=== PATIENT | female | born 1995 | race Two or more races ===

== ENCOUNTER 2016-08-13 16:53 | Emergency (ER) | payer MEDICAID, OTHER ==
[~2016-08-13] VITALS: Ht 157.5 cm; Wt 65.8 kg
[~2016-08-13 16:53] MED LIST: PROZAC20 MG ORAL
[2016-08-13 17:05] VITALS: BP 129/84
[2016-08-13] MEDS ORDERED: NKM (17:06)
[2016-08-13] MEDS ORDERED: Mylanta II UD 30ml ORAL ONE (17:15)
[2016-08-13] MEDS ORDERED: Dicyclomine HCl 10mg/5ml oral soln ORAL ONE (17:15)
[2016-08-13] MEDS ORDERED: Lidocaine 2% Visc 15ml soln ORAL ONE (17:15)
--- NOTE | 2016-08-13 17:24 | Emergency Room Report ---
History of Present Illness General Chief Complaint: General Complaint Source: Patient Present Illness [facility] The patient is a 21-year-old female presenting for upper abdominal pain which began yesterday. The patient states that she's been excessively drinking over the past few days and has also vomited several times. The patient now describes pain as an 8/10 burning sensation to the mid upper abdomen and radiates to the mid chest. The patient states that she has never been diagnosed with GERD. She has not tried any medications for this. The patient denies any other symptoms including cough, shortness of breath, headache, dizziness, blurred vision, diaphoresis, numbness or tingling of extremities, palpitations Allergies: Coded Allergies: No Known Allergies (Unverified , 05/15/13) Patient History Past Medical History: see triage record Pertinent Family History: none Last Menstrual Period: 07/29/2016 Now: No : 0 Para: 0 Reviewed Nursing Documentation: PMH: Agreed, PSxH: Agreed Nursing Documentation-PMH Hx Asthma: Yes Review of Systems All Other Systems: negative except mentioned in HPI Physical Exam Vital Signs Date Time Temp Pulse Resp B/P Pulse Ox O2 Delivery O2 Flow Rate FiO2 08/13/16 16:59 99.1 88 16 129/84 97 Room Air Sp02 EP Interpretation: reviewed, normal General Appearance: no apparent distress, alert, GCS 15, non-toxic Head: normocephalic, atraumatic Eyes: bilateral eye PERRL, bilateral eye normal inspection ENT: hearing grossly normal, normal pharynx, no angioedema, normal voice Neck: full range of motion, supple/symm/no masses Respiratory: lungs clear, normal breath sounds, speaking full sentences Cardiovascular #1: regular rate, rhythm, no edema Gastrointestinal: normal bowel sounds, soft, non-distended, no guarding, no rebound, tenderness - TTP over epigastric region Genitourinary: normal inspection, no CVA tenderness Musculoskeletal: back normal, gait/station normal, normal range of motion, non- tender Neurologic: alert, oriented x3, responsive, motor strength/tone normal, sensory intact, speech normal Psychiatric: judgement/insight normal, memory normal, mood/affect normal, no suicidal/homicidal ideation Skin: normal color, no rash, warm/dry, well hydrated Lymphatic: no adenopathy Medical Decision Making PA Attestation Dr. Joe is my supervising physician. Patient management was discussed with my supervising physician Diagnostic Impression: Primary Impression: GERD (gastroesophageal reflux disease) ER Course The patient is a 21-year-old female presenting for upper abdominal pain which began yesterday. Differential diagnosis considered: Esophagitis, GERD, gastroenteritis, pancreatitis, cholecystitis Physical exam: Vitals within normal limits. No apparent distress. Afebrile HEENT exam is unremarkable Lungs clear to auscultation bilaterally Abdomen is soft. There is tenderness to palpation over the epigastric region only. No CVA tenderness The patient is given GI cocktail and Zofran and is feeling much better. The patient will be discharged home with prescription for Pepcid. The patient is advised not to drink alcohol. ER precautions are given Last Vital Signs Date Time Temp Pulse Resp B/P Pulse Ox O2 Delivery O2 Flow Rate FiO2 08/13/16 17:05 99.1 88 16 129/84 97 Room Air Status: improved Disposition: HOME, SELF-CARE Condition: Improved Scripts Acetaminophen* (TYLENOL EXTRA STRENGTH*) 500 Mg Tablet 500 MG ORAL Q8H Y for Prn Headache/Temp > 101, #30 TAB 0 Refills Prov: MYRON RAMIREZ P.A. 08/13/16 Famotidine (PEPCID) 40 Mg Tablet 40 MG PO DAILY, #7 TAB 0 Refills Prov: MYRON RAMIREZ P.A. 08/13/16 MYRON RAMIREZ P.ANeftali Aug 13, 2016 17:24
[2016-08-13] MEDS ORDERED: PEPCID40 MG PO (18:22)
[2016-08-13] MEDS ORDERED: TYLENOL EXTRA500 MG ORAL (18:22)
[2016-08-13 18:29] VITALS: BP 112/69
[2016-08-14] MEDS ORDERED: ZOFRAN ODT4 MG ORAL (14:28)
[2016-08-14] MEDS ORDERED: NITROFURANTOIN100 M2 ORAL (14:28)
== END 2016-08-13 18:30 | disposition home or self-care (01) ==
LOC: EMR 17:33
DX: K21.9 Gastro-esophageal reflux disease without esophagitis (principal)
CPT/HCPCS: 99284

== ENCOUNTER 2016-08-14 11:54 | Emergency (ER) | payer MEDICAID, OTHER ==
[~2016-08-14] VITALS: Ht 154.9 cm; Wt 65.8 kg
[~2016-08-14 11:54] MED LIST changes: +NKM; +PEPCID40 MG PO; +TYLENOL EXTRA500 MG ORAL
[2016-08-14 12:08] VITALS: BP 154/92
[2016-08-14] MEDS ORDERED: Pantoprazole Inj IV ONE (13:15)
[2016-08-14 13:53] LABS: APPEARANCE,URINE SLIGHTLY CLOUDY; KETONES,URINE 3+ (NEGATIVE); LEUKOCYTE ESTERASE ,URINE 1+ (NEGATIVE); NITRITE,URINE POSITIVE (NEGATIVE); PH,URINE 8 (4.5-8.0); PROTEIN,URINE NEGATIVE (NEGATIVE); UROBILINOGEN,URINE NORMAL MG/DL (0.0-1.0)
--- NOTE | 2016-08-14 13:58 | Emergency Room Report ---
History of Present Illness General Chief Complaint: Chest Pain Source: Patient, Medical Record Present Illness HPI 21 YOF here for 2nd visit in 2 days for epigastric pain, now radiating to back s /p heavy drinking recently. Patient endorses almost daily drinking ETOH. Was treated for GERD and discharged after pain resolved with GI cocktail and normal serial exam yesterday. Patient states she vomited the meds Rx she was given yesterday. Cant keep anything down, liquid or food. Denies other med problems , previous Abd/pelvic surgery. Allergies: Coded Allergies: No Known Allergies (Unverified , 05/15/13) Patient History Past Medical History: none Past Surgical History: none Pertinent Family History: none Social History: Reports: alcohol use Last Menstrual Period: 07/27/2015 Now: No : 0 Para: 0 Immunizations: UTD Reviewed Nursing Documentation: PMH: Agreed, PSxH: Agreed Nursing Documentation-PMH Hx Asthma: Yes Review of Systems All Other Systems: negative except mentioned in HPI Physical Exam Vital Signs Date Time Temp Pulse Resp B/P Pulse Ox O2 Delivery O2 Flow Rate FiO2 08/14/16 12:00 98.8 120 24 154/92 95 Room Air Sp02 EP Interpretation: reviewed, normal General Appearance: normal inspection, well appearing, no apparent distress, alert, GCS 15, non-toxic Head: atraumatic Eyes: bilateral eye EOMI, bilateral eye PERRL ENT: normal ENT inspection, hearing grossly normal, normal voice Neck: normal inspection, full range of motion, supple, no bony tend Respiratory: normal inspection, lungs clear, normal breath sounds, no respiratory distress, no retraction, no wheezing Cardiovascular #1: regular rate, rhythm, no edema Gastrointestinal: normal inspection, normal bowel sounds, soft, no guarding, no hernia, spleenomegaly, other - Mild ttp epigastriunm Genitourinary: no CVA tenderness Musculoskeletal: normal inspection, back normal, normal range of motion, Eleni' s Sign negative Neurologic: normal inspection, alert, oriented x3, responsive, scale manager III-XII nml as tested, motor strength/tone normal, speech normal Psychiatric: normal inspection Skin: normal inspection Medical Decision Making Diagnostic Impression: Primary Impression: Epigastric abdominal pain Additional Impression: UTI (urinary tract infection) Qualified Codes: N30.01 - Acute cystitis with hematuria ER Course Epigastric pain for 3 days in setting of ETOH binge. VSS. Afebrile. Tx and released yesterday for GERD Labs: No leuks. H&H stable. Lipase normal Unlikely pancreatitis UA UTI Initial dose rocephin given in ED. Low suspicion for pyelo given no CVAT, no fever/chills or systemic involvement Rx macrobid, zofran DC home EKG Diagnostic Results Rate: normal Rhythm: NSR ST Segments: no acute changes ASA given to the pt in ED: No Last Vital Signs Date Time Temp Pulse Resp B/P Pulse Ox O2 Delivery O2 Flow Rate FiO2 08/14/16 12:08 98.8 120 24 154/92 95 Room Air Status: improved Disposition: HOME, SELF-CARE Scripts Ondansetron Odt* (ZOFRAN ODT*) 4 Mg Tab.rapdis 4 MG ORAL Q6H Y for Nausea & Vomiting, #20 TAB 0 Refills Prov: MAK PRUITT M.D. 08/14/16 Nitrofurantoin Monohyd/M-Cryst* (MACROBID 100 MG*) 100 Mg Capsule 100 MG ORAL EVERY 12 HOURS for 7 Days, #14 CAP Prov: MAK PRUITT M.D. 08/14/16 [address]errals: [facility],REFERRING (PCP) MAK PRUITT M.D. Aug 14, 2016 13:58
[2016-08-14 14:04] LABS: MEAN CORPUSCULAR HEMOGLOBIN 30.9 PG (27.0-31.0); MEAN CORPUSCULAR HGB CONC 31.9 G/DL (32.0-36.0); MEAN CORPUSCULAR VOLUME 97 FL (80-99); MEAN PLATELET VOLUME 8.6 FL (6.5-10.1); PLATELET COUNT 171 K/UL (150-450); RED CELL DISTRIBUTION WIDTH 12.9 % (11.6-14.8); WHITE BLOOD COUNT 8.3 K/UL (4.8-10.8)
[2016-08-14 14:07] LABS: BACTERIA,URINE MODERATE /HPF; SQUAMOUS EPITHELIAL CELL,UR FEW /LPF (NONE/OCC)
[2016-08-14 14:15] LABS: ALANINE AMINOTRANSFERASE 27 U/L (3-33); ALBUMIN/GLOBULIN RATIO 1.6 (1.0-2.7); ANION GAP 17 (5-15); ASPARTATE AMINO TRANSFERASE 27 U/L (5-40); CALCIUM 9.4 mg/dL (8.6-10.2); CARBON DIOXIDE 25 mEQ/L (20-30); CHLORIDE 99 mEQ/L (98-107); CREATININE 0.7 mg/dL (0.5-0.9); GLOMERULAR FILTRATION RATE > 60 mL/min (>60); HEMOLYSIS 4; LIPASE 16 U/L (< 60); SODIUM 141 mEQ/L (135-145); TOTAL PROTEIN 7.5 g/dL (6.6-8.7)
[2016-08-14] MEDS ORDERED: cefTRIAXone 1 GM in NS 55 ML IVPB ONE (14:15)
[2016-08-14] MEDS ORDERED: ZOFRAN ODT4 MG ORAL (14:28)
[2016-08-14] MEDS ORDERED: NITROFURANTOIN100 M2 ORAL (14:28)
[2016-08-14 14:53] LABS: BAND NEUTROPHILS % (MANUAL) 0 % (0-8); BASOPHILS % (MANUAL) 0 % (0-2); EOSINOPHILS % (MANUAL) 0 % (0-3); LYMPHOCYTES % (MANUAL) 4 % (20-45); NEUTROPHILS % (MANUAL) 95 % (45-75); PLATELET ESTIMATE ADEQUATE; PLATELET MORPHOLOGY NORMAL; TOTAL CELLS COUNTED 100
[2016-08-14 14:54] LABS: STOMATOCYTES OCCASIONAL
[2016-08-14 14:55] LABS: HYPOCHROMASIA 1+
[2016-08-14 14:57] VITALS: BP 118/72
[2016-08-14 15:14] VITALS: BP 114/68
== END 2016-08-14 15:20 | disposition home or self-care (01) ==
LOC: EMR 12:47 → CANBEDREQ 14:23 → EMR 15:20
DX: R10.13 Epigastric pain (principal); N30.01 Acute cystitis with hematuria; R11.10 Vomiting, unspecified
CPT/HCPCS: 36415; 80053; 81003; 83690; 85007; 85025; 87086; 87181; 96360; 96374; 96375; 99284; C9113; J0696; J2405

== ENCOUNTER 2016-08-16 14:39 | Emergency (ER) | payer OTHER ==
[~2016-08-16] VITALS: Ht 154.9 cm; Wt 65.8 kg
[~2016-08-16 14:39] MED LIST changes: +NITROFURANTOIN100 M2 ORAL; +ZOFRAN ODT4 MG ORAL
[2016-08-16] MEDS ORDERED: Morphine Sulfate 4mg/ml Inj IVP ONE (15:15)
[2016-08-16] MEDS ORDERED: Mylanta II UD 30ml ORAL ONE (15:15)
[2016-08-16] MEDS ORDERED: Dicyclomine HCl 10mg/5ml oral soln ORAL ONE (15:15)
[2016-08-16] MEDS ORDERED: Lidocaine 2% Visc 15ml soln ORAL ONE (15:15)
[2016-08-16] MEDS ORDERED: Famotidine 20 MG/ 2ML VIAL IVP ONE (15:15)
[2016-08-16 15:38] LABS: MEAN CORPUSCULAR HEMOGLOBIN 32.3 PG (27.0-31.0); MEAN CORPUSCULAR HGB CONC 34.4 G/DL (32.0-36.0); MEAN CORPUSCULAR VOLUME 94 FL (80-99); PLATELET COUNT 189 K/UL (150-450); RED BLOOD COUNT 4.47 M/UL (4.20-5.40); RED CELL DISTRIBUTION WIDTH 12.2 % (11.6-14.8); WHITE BLOOD COUNT 9.8 K/UL (4.8-10.8)
[2016-08-16 15:41] VITALS: BP 146/88
[2016-08-16 15:43] LABS: BASOPHILS % (AUTO) 0.5 % (0.0-2.0); LYMPHOCYTES % (AUTO) 9.6 % (20.0-45.0); MONOCYTES % (AUTO) 4.2 % (1.0-10.0); NEUTROPHILS % (AUTO) 85.7 % (45.0-75.0)
[2016-08-16 15:45] LABS: TROPONIN I < 0.30 ng/mL (<=0.30)
[2016-08-16 15:48] LABS: ALANINE AMINOTRANSFERASE 26 U/L (3-33); ALBUMIN/GLOBULIN RATIO 1.7 (1.0-2.7); ANION GAP 21 (5-15); ASPARTATE AMINO TRANSFERASE 23 U/L (5-40); CALCIUM 9.7 mg/dL (8.6-10.2); CARBON DIOXIDE 22 mEQ/L (20-30); CHLORIDE 94 mEQ/L (98-107); CREATININE 0.7 mg/dL (0.5-0.9); GLOMERULAR FILTRATION RATE > 60 mL/min (>60); HEMOLYSIS 5; LIPASE 18 U/L (< 60); POTASSIUM 3.8 mEQ/L (3.4-4.9); SODIUM 137 mEQ/L (135-145)
[2016-08-16 15:53] LABS: APPEARANCE,URINE SLIGHTLY CLOUDY; KETONES,URINE 4+ (NEGATIVE); LEUKOCYTE ESTERASE ,URINE 3+ (NEGATIVE); NITRITE,URINE NEGATIVE (NEGATIVE); PH,URINE 6 (4.5-8.0); PROTEIN,URINE 1+ (NEGATIVE); UROBILINOGEN,URINE NORMAL MG/DL (0.0-1.0)
[2016-08-16 15:58] LABS: CKMB < 1.5 ng/mL (< 3.8)
[2016-08-16 16:00] LABS: BACTERIA,URINE MODERATE /HPF; SQUAMOUS EPITHELIAL CELL,UR MODERATE /LPF (NONE/OCC)
[2016-08-16] MEDS ORDERED: IBUPROFEN600 MG ORAL (16:29)
[2016-08-16 16:46] VITALS: BP 138/76
[2016-08-16 16:47] VITALS: BP 146/88
--- NOTE | 2016-08-16 17:04 | Emergency Room Report ---
History of Present Illness General Chief Complaint: Chest Pain Source: Patient Present Illness HPI 21-year-old female present to ED complaining of chest pain. States having chest pain for last 2 days. Was seen in emergency room 2 days ago. Workup showed that patient likely had gastritis and UTI. Patient was discharged on medications. Patient states that her symptoms have not improved. Patient notes midsternal chest pain. Sharp. Nonradiating. 10 out of 10. Worse with deep breaths. Denies shortness of breath. Denies cough. No aggravating relieving factors. Denies any other associated symptoms Allergies: Coded Allergies: No Known Allergies (Unverified , 05/15/13) Patient History Past Medical History: asthma Past Surgical History: none Pertinent Family History: none Social History: Denies: alcohol use, drug use, smoking Last Menstrual Period: 07/30/16 Now: No : 0 Para: 0 Immunizations: UTD Reviewed Nursing Documentation: PMH: Agreed, PSxH: Agreed Nursing Documentation-PMH Hx Asthma: Yes History Of Psychiatric Problem: Yes Review of Systems All Other Systems: negative except mentioned in HPI Physical Exam Vital Signs Date Time Temp Pulse Resp B/P Pulse Ox O2 Delivery O2 Flow Rate FiO2 08/16/16 14:47 98.1 120 22 150/85 96 08/16/16 15:41 Room Air Sp02 EP Interpretation: reviewed, normal General Appearance: no apparent distress, alert, GCS 15, non-toxic Head: normocephalic Eyes: bilateral eye PERRL, bilateral eye normal inspection ENT: normal ENT inspection Neck: normal inspection Respiratory: lungs clear, normal breath sounds, speaking full sentences, other - reproducible midsternal chest wall pain Cardiovascular #1: regular rate, rhythm, no edema Gastrointestinal: normal bowel sounds, non tender, soft, non-distended, no guarding, no rebound Rectal: deferred Genitourinary: no CVA tenderness Musculoskeletal: normal inspection Neurologic: alert, oriented x3, responsive, motor strength/tone normal, sensory intact, speech normal Psychiatric: normal inspection Skin: normal inspection Lymphatic: normal inspection Medical Decision Making Diagnostic Impression: Primary Impression: Chest wall pain Additional Impression: UTI (urinary tract infection) Qualified Codes: N39.0 - Urinary tract infection, site not specified ER Course Hospital Course 21-year-old female presents ED complaining of reproducible chest wall pain Differential diagnoses include: Rib fracture, ID/unstable angina, contusion, muscle strain Clinical course Patient placed on stretcher. After initial history and physical I ordered labs , EKG, chest x-ray, GI cocktail, morphine, pepcid. labs reviewed- all electrolytes normal, troponins negative, no leukocytosis, hemoglobin/hematocrit stable, ddimer negatiive, UA grossly positive EKG - NSR, no ischemic changes Chest x-ray-no cardiomegaly, no rib fracture, no pneumothorax, no acute process clinical findings consistent with muscle strain/costochondritis. Reassurance given. Upon reassessment patient states pain is improved. Patient instructed to complete her antibiotic prescription as previously prescribed I. I feel this is a highly complex case requiring extensive working including EKG/Rhythm strip, Xray/CT/US, Blood/urine lab work, repeat exams while in ED, and administration of strong opiates/narcotics for pain control, admission to hospital or close patient follow up. Diagnosis - chest wall pain, UTI Stable and discharged to home with prescription for Motrin. Continue antibiotics as directed. Instructed to followup with PMD. Return to ED if symptoms recur or worsen Labs Test 08/16/16 15:15 08/16/16 15:33 White Blood Count 9.8 K/UL (4.8-10.8) Red Blood Count 4.47 M/UL (4.20-5.40) Hemoglobin 14.4 G/DL (12.0-16.0) Hematocrit 41.8 % (37.0-47.0) Mean Corpuscular Volume 94 FL (80-99) Mean Corpuscular Hemoglobin 32.3 PG (27.0-31.0) Mean Corpuscular Hemoglobin Concent 34.4 G/DL (32.0-36.0) Red Cell Distribution Width 12.2 % (11.6-14.8) Platelet Count 189 K/UL (150-450) Mean Platelet Volume 9.0 FL (6.5-10.1) Neutrophils (%) (Auto) 85.7 % (45.0-75.0) Lymphocytes (%) (Auto) 9.6 % (20.0-45.0) Monocytes (%) (Auto) 4.2 % (1.0-10.0) Eosinophils (%) (Auto) 0.0 % (0.0-3.0) Basophils (%) (Auto) 0.5 % (0.0-2.0) D-Dimer 327 ng/mL (<500) Sodium Level 137 mEQ/L (135-145) Potassium Level 3.8 mEQ/L (3.4-4.9) Chloride Level 94 mEQ/L (98-107) Carbon Dioxide Level 22 mEQ/L (20-30) Anion Gap 21 (5-15) Blood Urea Nitrogen 13 mg/dL (7-23) Creatinine 0.7 mg/dL (0.5-0.9) Estimat Glomerular Filtration Rate > 60 mL/min (>60) Glucose Level 77 mg/dL (74-106) Calcium Level 9.7 mg/dL (8.6-10.2) Total Bilirubin 0.5 mg/dL (0.0-1.2) Aspartate Amino Transf (AST/SGOT) 23 U/L (5-40) Alanine Aminotransferase (ALT/SGPT) 26 U/L (3-33) Alkaline Phosphatase 84 U/L (35-104) Creatine Kinase MB < 1.5 ng/mL (< 3.8) Troponin I < 0.30 ng/mL (<=0.30) Total Protein 8.0 g/dL (6.6-8.7) Albumin 5.1 g/dL (3.5-5.2) Globulin 2.9 g/dL Albumin/Globulin Ratio 1.7 (1.0-2.7) Lipase 18 U/L (< 60) Urine Color Yellow Urine Appearance Slightly cloudy Urine pH 6 (4.5-8.0) Urine Specific [place] 1.020 (1.005-1.035) Urine Protein 1+ (NEGATIVE) Urine Glucose (UA) Negative (NEGATIVE) Urine Ketones 4+ (NEGATIVE) Urine Occult Blood 1+ (NEGATIVE) Urine Nitrite Negative (NEGATIVE) Urine Bilirubin Negative (NEGATIVE) Urine Urobilinogen Normal MG/DL (0.0-1.0) Urine Leukocyte Esterase 3+ (NEGATIVE) Urine RBC 2-4 /HPF (0 - 2) Urine WBC 5-10 /HPF (0 - 2) Urine Squamous Epithelial Cells Moderate /LPF (NONE/OCC) Urine Bacteria Moderate /HPF (NONE) Urine HCG, Qualitative Negative EKG Diagnostic Results Rate: normal Rhythm: NSR ST Segments: no acute changes ASA given to the pt in ED: No Rhythm Strip Diag. Results EP Interpretation: yes Rhythm: NSR, no PVC's, no ectopy Chest X-Ray Diagnostic Results EP Interpretation: Yes Findings: no consolidation, no effusion, no pneumothorax, no acute cardiopulmonary disease Number of Views: 1 Last Vital Signs Date Time Temp Pulse Resp B/P Pulse Ox O2 Delivery O2 Flow Rate FiO2 08/16/16 16:47 98.0 22 146/88 97 Room Air 08/16/16 16:46 88 Status: improved Disposition: HOME, SELF-CARE Condition: Stable Scripts Ibuprofen* (MOTRIN*) 600 Mg Tablet 600 MG ORAL Q8H Y for For Pain, #30 TAB 0 Refills Prov: ADALBERTO EDDY M.D. 08/16/16 Patient Instructions: Nonspecific Chest Pain Additional Instructions: continue abx as directed ADALBERTO EDDY M.D. Aug 16, 2016 17:04
--- NOTE | 2016-08-16 17:12 | Diagnostic Imaging Report ---
Indication: Chest pain Technique: One view of the chest Comparison: none Findings: Lungs and pleural spaces are clear. Heart size is normal. Impression: No acute process
--- NOTE | 2016-08-20 10:50 | Cardiology Report ---
APPROVED REPORT EKG Measurement Heart [id number] Sinus rhythm with marked sinus arrhythmia Otherwise normal ECG
== END 2016-08-16 16:48 | disposition home or self-care (01) ==
LOC: EMR 15:30
DX: R07.89 Other chest pain (principal); N39.0 Urinary tract infection, site not specified; Z86.59 Personal history of other mental and behavioral disorders; Z87.09 Personal history of other diseases of the respiratory system
CPT/HCPCS: 36415; 71010; 80053; 81003; 81025; 82553; 83690; 84484; 85025; 85379; 93005; 96360; 96374; 96375; 99284; J2270; J2405; J7040; S0028

== ENCOUNTER 2017-02-19 08:26 | Emergency (ER) | payer OTHER ==
[~2017-02-19] VITALS: Ht 154.9 cm; Wt 72.1 kg
[2017-02-19 08:26] VITALS: BP 131/83
[~2017-02-19 08:26] MED LIST changes: +IBUPROFEN600 MG ORAL
--- NOTE | 2017-02-19 09:51 | Emergency Room Report ---
History of Present Illness General Chief Complaint: Behavioral Complaint Source: Patient, EMS Present Illness HPI Patient is a 22-year-old female brought in by EMS after increased anxiety. Patient had prior history of anxiety. She denies using any substances. Patient was brought in by EMS and was noted to be somewhat tachycardic. Patient has been . Patient denies any fever. She has not been vomiting. She denies any recent alcohol use.Patient denies any leg pain or swelling. Allergies: Coded Allergies: No Known Allergies (Unverified , 05/15/13) Patient History Past Medical History: see triage record Last Menstrual Period: unk Reviewed Nursing Documentation: PMH: Agreed, PSxH: Agreed Nursing Documentation-PMH Past Medical History: No History, Except For Hx Cardiac Problems: Yes Hx Asthma: Yes History Of Psychiatric Problem: Yes - Anxiety Review of Systems All Other Systems: negative except mentioned in HPI Physical Exam Vital Signs Date Time Temp Pulse Resp B/P Pulse Ox O2 Delivery O2 Flow Rate FiO2 02/19/17 08:21 98.4 118 16 131/83 99 Room Air Sp02 EP Interpretation: reviewed, normal General Appearance: alert/responsive, no apparent distress, GCS 15, non-toxic Head: atraumatic Eyes: PERRL, lids + conjunctiva normal ENT: hearing intact, no angioedema Neck: supple/symm/no masses, no meningismus Respiratory: effort normal, no wheezing, chest symmetrical Cardiovascular: regular rate, rhythm, no edema Cardiovascular #2: 2+ carotid (R), 2+ carotid (L), 2+ dorsalis pedis (R), 2+ dorsalis pedis (L) Gastrointestinal: non-tender, no mass, non-distended, no rebound/guarding, normal bowel sounds Musculoskeletal: gait & station normal, strength & tone normal, normal ROM, non -tender Neurologic: normal inspection, CN II-XII intact, oriented x3, sensory intact, normal speech Psychiatric: normal inspection, judgment & insight normal Skin: no rash, well hydrated Lymphatic: normal inspection Medical Decision Making Diagnostic Impression: Primary Impression: Alcohol intoxication ER Course Patient presented for palpitations. The differential diagnosis included was not limited to arrhythmia, thyroid storm, sepsis, anemia, myocardial infarction , alcohol withdrawal, stimulant abuse, caffeine overdose among others. Because of complexity of patient's case laboratory testing and imaging studies were ordered.Patient was noted to have elevated blood alcohol level. The patient was noted to have evidence of improvement in mental status. At the time of discharge patient is awake alert oriented and able to ambulate without assistance. Labs Test 02/19/17 08:50 White Blood Count 6.3 K/UL (4.8-10.8) Red Blood Count 4.35 M/UL (4.20-5.40) Hemoglobin 13.7 G/DL (12.0-16.0) Hematocrit 41.8 % (37.0-47.0) Mean Corpuscular Volume 96 FL (80-99) Mean Corpuscular Hemoglobin 31.6 PG (27.0-31.0) Mean Corpuscular Hemoglobin Concent 32.9 G/DL (32.0-36.0) Red Cell Distribution Width 12.5 % (11.6-14.8) Platelet Count 232 K/UL (150-450) Mean Platelet Volume 8.0 FL (6.5-10.1) Neutrophils (%) (Auto) 54.9 % (45.0-75.0) Lymphocytes (%) (Auto) 33.2 % (20.0-45.0) Monocytes (%) (Auto) 10.4 % (1.0-10.0) Eosinophils (%) (Auto) 0.6 % (0.0-3.0) Basophils (%) (Auto) 0.9 % (0.0-2.0) Sodium Level 141 mEQ/L (135-145) Potassium Level 4.0 mEQ/L (3.4-4.9) Chloride Level 103 mEQ/L (98-107) Carbon Dioxide Level 24 mEQ/L (20-30) Anion Gap 14 (5-15) Blood Urea Nitrogen 9 mg/dL (7-23) Creatinine 0.6 mg/dL (0.5-0.9) Estimat Glomerular Filtration Rate > 60 mL/min (>60) Glucose Level 109 mg/dL (74-106) Calcium Level 8.8 mg/dL (8.6-10.2) Total Bilirubin < 0.2 mg/dL (0.0-1.2) Aspartate Amino Transf (AST/SGOT) 20 U/L (5-40) Alanine Aminotransferase (ALT/SGPT) 12 U/L (3-33) Alkaline Phosphatase 107 U/L (35-104) Total Protein 7.5 g/dL (6.6-8.7) Albumin 4.8 g/dL (3.5-5.2) Globulin 2.7 g/dL Albumin/Globulin Ratio 1.7 (1.0-2.7) Salicylates Level < 1 mg/dL (10-30) Acetaminophen Level < 10 ug/mL (10-30) Serum Alcohol 288 mg/dL Last Vital Signs Date Time Temp Pulse Resp B/P Pulse Ox O2 Delivery O2 Flow Rate FiO2 02/19/17 08:26 98.4 121 16 131/83 99 Room Air Status: improved Disposition: HOME, SELF-CARE Condition: Stable Referrals: NOT CHOSEN [facility]/,REFERRING (PCP) Richardson Carrion Feb 19, 2017 09:51
[2017-02-19 09:52] LABS: BASOPHILS % (AUTO) 0.9 % (0.0-2.0); EOSINOPHILS % (AUTO) 0.6 % (0.0-3.0); LYMPHOCYTES % (AUTO) 33.2 % (20.0-45.0); MEAN CORPUSCULAR HEMOGLOBIN 31.6 PG (27.0-31.0); MEAN CORPUSCULAR HGB CONC 32.9 G/DL (32.0-36.0); MEAN CORPUSCULAR VOLUME 96 FL (80-99); MONOCYTES % (AUTO) 10.4 % (1.0-10.0); NEUTROPHILS % (AUTO) 54.9 % (45.0-75.0); PLATELET COUNT 232 K/UL (150-450); RED BLOOD COUNT 4.35 M/UL (4.20-5.40); RED CELL DISTRIBUTION WIDTH 12.5 % (11.6-14.8); WHITE BLOOD COUNT 6.3 K/UL (4.8-10.8)
[2017-02-19 10:03] LABS: ACETAMINOPHEN < 10 ug/mL (10-30); ALANINE AMINOTRANSFERASE 12 U/L (3-33); ALBUMIN/GLOBULIN RATIO 1.7 (1.0-2.7); ALCOHOL 288 mg/dL; ANION GAP 14 (5-15); ASPARTATE AMINO TRANSFERASE 20 U/L (5-40); CALCIUM 8.8 mg/dL (8.6-10.2); CARBON DIOXIDE 24 mEQ/L (20-30); CHLORIDE 103 mEQ/L (98-107); CREATININE 0.6 mg/dL (0.5-0.9); GLOMERULAR FILTRATION RATE > 60 mL/min (>60); HEMOLYSIS 6; SODIUM 141 mEQ/L (135-145); TOTAL PROTEIN 7.5 g/dL (6.6-8.7)
[2017-02-19 11:43] VITALS: BP 120/80
== END 2017-02-19 11:46 | disposition home or self-care (01) ==
LOC: EDBD 08:26 → EMR 08:57
DX: F10.129 Alcohol abuse with intoxication, unspecified (principal); F41.9 Anxiety disorder, unspecified; J45.909 Unspecified asthma, uncomplicated
CPT/HCPCS: 36415; 80053; 80329; 85025; 96360; 96374

== ENCOUNTER 2017-05-22 21:57 | Emergency (ER) | payer OTHER ==
[~2017-05-22] VITALS: Ht 157.5 cm; Wt 68.0 kg
[2017-05-22 22:04] VITALS: BP 136/66
[2017-05-22] MEDS ORDERED: TYLENOL EXTRA500 MG ORAL (22:32)
[2017-05-22] MEDS ORDERED: CYCLOBENZAPRINE10 MG ORAL (22:32)
[2017-05-22 22:40] VITALS: BP 126/70
--- NOTE | 2017-05-23 03:21 | Emergency Room Report ---
History of Present Illness General Chief Complaint: General Complaint Source: Patient Present Illness HPI 22-year-old female presents ED for evaluation. Patient states she's been having on and off chest pain for the last 4 months. Denies any chest pain at this time. States pain is with deep breaths. Pain is normally midsternal, sharp, 7/10. Denies shortness of breath. Patient denies any recent trauma. Denies any cardiac history. Denies smoking or drug use. No other aggravating relieving factors. Denies any other associated symptoms Allergies: Coded Allergies: No Known Allergies (Unverified , 05/22/17) Patient History Past Medical History: GERD Past Surgical History: none Pertinent Family History: none Social History: Denies: smoking, alcohol use, drug use Last Menstrual Period: 05/19/17 Now: No : 0 Para: 0 Immunizations: UTD Reviewed Nursing Documentation: PMH: Agreed, PSxH: Agreed Nursing Documentation-PMH Past Medical History: No History, Except For Hx Gastrointestinal Problems: Yes - acid reflux Review of Systems All Other Systems: negative except mentioned in HPI Physical Exam Vital Signs Date Time Temp Pulse Resp B/P (MAP) Pulse Ox O2 Delivery O2 Flow Rate FiO2 05/22/17 22:01 98.1 78 14 136/66 98 Room Air Sp02 EP Interpretation: reviewed, normal General Appearance: no apparent distress, alert, GCS 15, non-toxic Head: normocephalic, atraumatic Eyes: bilateral eye normal inspection, bilateral eye PERRL ENT: hearing grossly normal, normal pharynx, no angioedema, normal voice Neck: full range of motion, supple/symm/no masses Respiratory: lungs clear, normal breath sounds, speaking full sentences, other - reproducible chest wall pain Cardiovascular #1: regular rate, rhythm, no edema Cardiovascular #2: 2+ carotid (R), 2+ carotid (L), 2+ radial (R), 2+ radial (L) , 2+ dorsalis pedis (R), 2+ dorsalis pedis (L) Gastrointestinal: normal bowel sounds, non tender, soft, non-distended, no guarding, no rebound Rectal: deferred Genitourinary: normal inspection, no CVA tenderness Musculoskeletal: back normal, gait/station normal, normal range of motion, non- tender Neurologic: alert, oriented x3, responsive, motor strength/tone normal, sensory intact, speech normal Psychiatric: judgement/insight normal, memory normal, mood/affect normal, no suicidal/homicidal ideation Reflexes: 3+ bicep (R), 3+ bicep (L), 3+ tricep (R), 3+ tricep (L), 3+ knee (R) , 3+ knee (L) Skin: normal color, no rash, warm/dry, well hydrated Lymphatic: no adenopathy Medical Decision Making Diagnostic Impression: Primary Impression: Chest wall pain ER Course Hospital Course 22-year-old female presents ED complaining of reproducible chest wall pain Differential diagnoses include: Rib fracture, NV/unstable angina, contusion, muscle strain Clinical course Patient placed on stretcher. After initial history, physical exam reveals a young female in no acute distress. There is reproducible tenderness over the sternum. No bruising. Lungs clear. remainder physical exam unremarkable Patient states she has been to several emergency room's for the same pain. That cardiac workups and imaging which of all been negative. I see no reason to repeat similar workups at this time clinical findings consistent with muscle strain/costochondritis. Reassurance given. We will prescribed anti-inflammatories and muscle relaxers I. I feel this is a highly complex case requiring extensive working including EKG/Rhythm strip, Xray/CT/US, Blood/urine lab work, repeat exams while in ED, and administration of strong opiates/narcotics for pain control, admission to hospital or close patient follow up. Diagnosis - chest wall pain Stable and discharged to home with prescription for Tylenol, FLexeril. Instructed to followup with PMD. Return to ED if symptoms recur or worsen my chest wall pain shortness Last Vital Signs Date Time Temp Pulse Resp B/P (MAP) Pulse Ox O2 Delivery O2 Flow Rate FiO2 05/22/17 22:40 98.1 75 16 126/70 98 Room Air Status: improved Disposition: HOME, SELF-CARE Condition: Stable Scripts Cyclobenzaprine Hcl* (FLEXERIL*) 10 Mg Tablet 10 MG ORAL TID Y for Muscle Spasm, #20 TAB Prov: ADALBERTO EDDY M.D. 05/22/17 Acetaminophen* (TYLENOL EXTRA STRENGTH*) 500 Mg Tablet 500 MG ORAL Q8H Y for Prn Headache/Temp > 101, #30 TAB 0 Refills Prov: ADALBERTO EDDY M.D. 05/22/17 Referrals: [facility],REFERRING (PCP) Patient Instructions: Chest Wall Pain, [id number] ADALBERTO EDDY M.D. May 23, 2017 03:21
== END 2017-05-22 22:40 | disposition home or self-care (01) ==
LOC: EMR 22:15 → MERGE 22:15 → EMR 22:40
DX: R07.89 Other chest pain (principal); K21.9 Gastro-esophageal reflux disease without esophagitis
CPT/HCPCS: 99284

== ENCOUNTER 2017-06-03 15:36 | Emergency (ER) | payer OTHER ==
[~2017-06-03] VITALS: Ht 154.9 cm; Wt 56.7 kg
[~2017-06-03 15:36] MED LIST changes: +CYCLOBENZAPRINE10 MG ORAL
[2017-06-03 15:39] VITALS: BP 142/92
[2017-06-03] MEDS ORDERED: Sodium Chloride 500ML 500 ML IV ONE (15:48)
[2017-06-03] MEDS ORDERED: PROTONIX40 MG ORAL (15:55)
[2017-06-03] MEDS ORDERED: LORazepam Inj 2mg/ml 1ml IV ONE (16:00)
--- NOTE | 2017-06-03 16:09 | Emergency Room Report ---
History of Present Illness General Chief Complaint: Chest Pain Source: Patient, EMS Present Illness HPI 22-year-old female presents ED opening of chest pain or palpitations. Started approximately 2 hours ago. Patient states she woke up in quickly developed the symptoms. Patient states that she does have anxiety, however has had this on and off chest pain for last 1 year. Pain is sharp, 7/10, nonradiating. Denies shortness of breath. Denies leg swelling. Denies drug use. No other aggravating relieving factors. Denies any other associated symptoms Allergies: Coded Allergies: No Known Allergies (Unverified , 05/22/17) Patient History Past Medical History: GERD, psych hx Past Surgical History: none Pertinent Family History: none Social History: Denies: smoking, alcohol use, drug use Now: No Immunizations: UTD Reviewed Nursing Documentation: PMH: Agreed, PSxH: Agreed Nursing Documentation-PMH Past Medical History: No Stated History Hx Gastrointestinal Problems: Yes - acid reflux Review of Systems All Other Systems: negative except mentioned in HPI Physical Exam Vital Signs Date Time Temp Pulse Resp B/P (MAP) Pulse Ox O2 Delivery O2 Flow Rate FiO2 06/03/17 15:29 99.1 130 20 143/87 99 Room Air Sp02 EP Interpretation: reviewed, normal General Appearance: no apparent distress, alert, GCS 15, non-toxic Head: normocephalic, atraumatic Eyes: bilateral eye normal inspection, bilateral eye PERRL ENT: hearing grossly normal, normal pharynx, no angioedema, normal voice Neck: full range of motion, supple/symm/no masses Respiratory: chest non-tender, lungs clear, normal breath sounds, speaking full sentences Cardiovascular #1: regular rate, rhythm, no edema Cardiovascular #2: 2+ carotid (R), 2+ carotid (L), 2+ radial (R), 2+ radial (L) , 2+ dorsalis pedis (R), 2+ dorsalis pedis (L) Gastrointestinal: normal bowel sounds, non tender, soft, non-distended, no guarding, no rebound Rectal: deferred Genitourinary: normal inspection, no CVA tenderness Musculoskeletal: back normal, gait/station normal, normal range of motion, non- tender Neurologic: alert, oriented x3, responsive, motor strength/tone normal, sensory intact, speech normal Psychiatric: judgement/insight normal, memory normal, no suicidal/homicidal ideation, anxious Reflexes: 3+ bicep (R), 3+ bicep (L), 3+ tricep (R), 3+ tricep (L), 3+ knee (R) , 3+ knee (L) Skin: normal color, no rash, warm/dry, well hydrated Lymphatic: no adenopathy Medical Decision Making Diagnostic Impression: Primary Impression: Chest pain Qualified Codes: R07.9 - Chest pain, unspecified Additional Impression: Anxiety ER Course Hospital Course 22-year-old female presents ED complaining of chest pain, palpitations Differential diagnoses include: MN/unstable angina, dehydration, anxiety Clinical course Patient placed on stretcher. on teletypesetter monitor. After initial history and physical I ordered labs, EKG, chest x-ray, IVFs and ativan labs reviewed- no leukocytosis, hemoglobin/hematocrit stable, troponins negative , electrolytes okay, utox negative, ddimer negative EKG - sinus tachycardia, no acute ischemic changes CXR - no acute process Upon reassessment patient is observed feeling better. Given negative workup I believe patient be safely discharged to home, pending outpatient followup. Likely anxiety but patient can receive cardiac workup as outpatient I. I feel this is a highly complex case requiring extensive working including EKG/Rhythm strip, Xray/CT/US, Blood/urine lab work, repeat exams while in ED, and administration of strong opiates/narcotics for pain control, admission to hospital or close patient follow up. Diagnosis - anxiety, chest pain Stable and discharged to home with Rx Xanax. Followup with PMD. Return to ED if symptoms recur or worse Labs Test 06/03/17 16:00 White Blood Count 6.6 K/UL (4.8-10.8) Red Blood Count 4.39 M/UL (4.20-5.40) Hemoglobin 13.2 G/DL (12.0-16.0) Hematocrit 39.7 % (37.0-47.0) Mean Corpuscular Volume 90 FL (80-99) Mean Corpuscular Hemoglobin 30.1 PG (27.0-31.0) Mean Corpuscular Hemoglobin Concent 33.3 G/DL (32.0-36.0) Red Cell Distribution Width 11.5 % (11.6-14.8) Platelet Count 174 K/UL (150-450) Mean Platelet Volume 10.4 FL (6.5-10.1) Neutrophils (%) (Auto) 70.9 % (45.0-75.0) Lymphocytes (%) (Auto) 21.7 % (20.0-45.0) Monocytes (%) (Auto) 6.7 % (1.0-10.0) Eosinophils (%) (Auto) 0.3 % (0.0-3.0) Basophils (%) (Auto) 0.5 % (0.0-2.0) D-Dimer 0.33 mg/L FEU (0.00-0.49) Urine Color Yellow Urine Appearance Clear Urine pH 6 (4.5-8.0) Urine Specific [place] 1.020 (1.005-1.035) Urine Protein 3+ (NEGATIVE) Urine Glucose (UA) Negative (NEGATIVE) Urine Ketones 4+ (NEGATIVE) Urine Occult Blood 1+ (NEGATIVE) Urine Nitrite Negative (NEGATIVE) Urine Bilirubin Negative (NEGATIVE) Urine Urobilinogen 1 MG/DL (0.0-1.0) Urine Leukocyte Esterase 1+ (NEGATIVE) Urine RBC 2-4 /HPF (0 - 2) Urine WBC 0-2 /HPF (0 - 2) Urine Squamous Epithelial Cells Few /LPF (NONE/OCC) Urine Bacteria Few /HPF (NONE) Urine HCG, Qualitative Negative Sodium Level 139 MMOL/L (136-145) Potassium Level 3.3 MMOL/L (3.5-5.1) Chloride Level 103 MMOL/L (98-107) Carbon Dioxide Level 24 MMOL/L (21-32) Anion Gap 12 mmol/L (5-15) Blood Urea Nitrogen 14 mg/dL (7-18) Creatinine 0.8 MG/DL (0.55-1.30) Estimat Glomerular Filtration Rate > 60 mL/min (>60) Glucose Level 77 MG/DL (74-106) Calcium Level 9.4 MG/DL (8.5-10.1) Total Bilirubin 0.7 MG/DL (0.2-1.0) Aspartate Amino Transf (AST/SGOT) 14 U/L (15-37) Alanine Aminotransferase (ALT/SGPT) 8 U/L (12-78) Alkaline Phosphatase 79 U/L (46-116) Total Creatine Kinase 78 U/L (26-308) Creatine Kinase MB 2.0 NG/ML (0.0-3.6) Creatine Kinase MB Relative Index 2.5 Troponin I 0.000 ng/mL (0.000-0.056) Total Protein 7.9 G/DL (6.4-8.2) Albumin 4.4 G/DL (3.4-5.0) Globulin 3.5 g/dL Albumin/Globulin Ratio 1.3 (1.0-2.7) Urine Opiates Screen Negative (NEGATIVE) Urine Barbiturates Screen Negative (NEGATIVE) Phencyclidine (PCP) Screen Negative (NEGATIVE) Urine Amphetamines Screen Negative (NEGATIVE) Urine Benzodiazepines Screen Negative (NEGATIVE) Urine Cocaine Screen Negative (NEGATIVE) Urine Marijuana (THC) Screen Negative (NEGATIVE) EKG Diagnostic Results Rate: tachycardiac Rhythm: NSR ST Segments: no acute changes ASA given to the pt in ED: No Rhythm Strip Diag. Results EP Interpretation: yes Rhythm: NSR, no PVC's, no ectopy Chest X-Ray Diagnostic Results Chest X-Ray Diagnostic Results : Chest X-Ray Ordered: Yes # of Views/Limited/Complete: 1 View Indication: Chest Pain EP Interpretation: Yes Interpretation: no consolidation, no effusion, no pneumothorax, no acute cardiopulmonary disease Impression: No acute disease Electronically Signed by: Electronically signed by Kenney Cortez MD Last Vital Signs Date Time Temp Pulse Resp B/P (MAP) Pulse Ox O2 Delivery O2 Flow Rate FiO2 06/03/17 15:39 124 22 Room Air 06/03/17 15:39 99.4 142/92 98 Status: improved Disposition: HOME, SELF-CARE Condition: Stable Scripts Alprazolam* (XANAX*) 0.25 Mg Tablet 0.25 MG ORAL TID Y for PRN Agitation/Anxiety, #20 TAB 0 Refills Prov: KENNEY CORTEZ M.D. 06/03/17 KENNEY CORTEZ M.D. Jun 03, 2017 16:09
[2017-06-03 16:40] LABS: APPEARANCE,URINE CLEAR; KETONES,URINE 4+ (NEGATIVE); LEUKOCYTE ESTERASE ,URINE 1+ (NEGATIVE); NITRITE,URINE NEGATIVE (NEGATIVE); PH,URINE 6 (4.5-8.0); PROTEIN,URINE 3+ (NEGATIVE); UROBILINOGEN,URINE 1 MG/DL (0.0-1.0)
[2017-06-03 16:43] LABS: ANION GAP 12 mmol/L (5-15); CALCIUM 9.4 MG/DL (8.5-10.1); CARBON DIOXIDE 24 MMOL/L (21-32); CHLORIDE 103 MMOL/L (98-107); CREATININE 0.8 MG/DL (0.55-1.30); GLOMERULAR FILTRATION RATE > 60 mL/min (>60); POTASSIUM 3.3 MMOL/L (3.5-5.1); SODIUM 139 MMOL/L (136-145)
[2017-06-03 16:57] LABS: ALANINE AMINOTRANSFERASE 8 U/L (12-78); ALBUMIN/GLOBULIN RATIO 1.3 (1.0-2.7); ASPARTATE AMINO TRANSFERASE 14 U/L (15-37); TOTAL PROTEIN 7.9 G/DL (6.4-8.2)
[2017-06-03 17:11] LABS: BACTERIA,URINE FEW /HPF; SQUAMOUS EPITHELIAL CELL,UR FEW /LPF (NONE/OCC); WBC,URINE 0-2 /HPF (0 - 2)
--- NOTE | 2017-06-03 17:16 | Diagnostic Imaging Report ---
Indication: Chest pain Technique: One view of the chest Comparison: none Findings: Lungs and pleural spaces are clear. Heart size is normal. Impression: No acute process
[2017-06-03 17:20] LABS: BASOPHILS % (AUTO) 0.5 % (0.0-2.0); EOSINOPHILS % (AUTO) 0.3 % (0.0-3.0); LYMPHOCYTES % (AUTO) 21.7 % (20.0-45.0); MEAN CORPUSCULAR HEMOGLOBIN 30.1 PG (27.0-31.0); MEAN CORPUSCULAR HGB CONC 33.3 G/DL (32.0-36.0); MEAN CORPUSCULAR VOLUME 90 FL (80-99); MEAN PLATELET VOLUME 10.4 FL (6.5-10.1); MONOCYTES % (AUTO) 6.7 % (1.0-10.0); NEUTROPHILS % (AUTO) 70.9 % (45.0-75.0); PLATELET COUNT 174 K/UL (150-450); RED BLOOD COUNT 4.39 M/UL (4.20-5.40); RED CELL DISTRIBUTION WIDTH 11.5 % (11.6-14.8); WHITE BLOOD COUNT 6.6 K/UL (4.8-10.8)
[2017-06-03] MEDS ORDERED: XANAX0.25 MG ORAL (17:42)
[2017-06-03 17:55] VITALS: BP 115/66
== END 2017-06-03 17:55 | disposition home or self-care (01) ==
LOC: EDBD 15:36 → EMR 16:02 → MERGE 16:02 → EMR 17:55
DX: R07.9 Chest pain, unspecified (principal); F41.9 Anxiety disorder, unspecified; K21.9 Gastro-esophageal reflux disease without esophagitis
CPT/HCPCS: 36415; 71010; 80053; 80307; 81003; 81025; 82550; 82553; 84484; 85025; 85379; 93005; 96361; 96374; 99284; J7040

== ENCOUNTER 2017-12-10 01:11 | Emergency (ER) | payer OTHER ==
[~2017-12-10] VITALS: Ht 154.9 cm; Wt 63.5 kg
[~2017-12-10 01:11] MED LIST changes: +PROTONIX40 MG ORAL; +XANAX0.25 MG ORAL
[2017-12-10 01:55] VITALS: BP 168/110
[2017-12-10 02:36] LABS: BILIRUBIN, URINE NEGATIVE (NEGATIVE); GLUCOSE, URINE (UA) NEGATIVE (NEGATIVE); KETONES,URINE NEGATIVE (NEGATIVE); NITRITE,URINE NEGATIVE (NEGATIVE); PH,URINE 5 (4.5-8.0); PROTEIN,URINE 3+ (NEGATIVE); UROBILINOGEN,URINE 1 MG/DL (0.0-1.0)
[2017-12-10 02:41] LABS: BASOPHILS % (AUTO) 0.4 % (0.0-2.0); EOSINOPHILS % (AUTO) 0.1 % (0.0-3.0); HEMATOCRIT 37.4 % (37.0-47.0); HEMOGLOBIN 12.8 G/DL (12.0-16.0); LYMPHOCYTES % (AUTO) 11.6 % (20.0-45.0); MEAN CORPUSCULAR VOLUME 92 FL (80-99); MONOCYTES % (AUTO) 4.7 % (1.0-10.0); NEUTROPHILS % (AUTO) 83.3 % (45.0-75.0); PLATELET COUNT 248 K/UL (150-450); RED BLOOD COUNT 4.08 M/UL (4.20-5.40); RED CELL DISTRIBUTION WIDTH 13.5 % (11.6-14.8); WHITE BLOOD COUNT 7.9 K/UL (4.8-10.8)
[2017-12-10 02:45] LABS: APPEARANCE,URINE SLIGHTLY CLOUDY; COLOR,URINE YELLOW; LEUKOCYTE ESTERASE ,URINE 1+ (NEGATIVE)
[2017-12-10 02:54] LABS: BLOOD UREA NITROGEN 7 mg/dL (7-18); CHLORIDE 107 MMOL/L (98-107); CREATININE 0.7 MG/DL (0.55-1.30); POTASSIUM 3.6 MMOL/L (3.5-5.1); SODIUM 142 MMOL/L (136-145)
[2017-12-10 03:04] LABS: ALANINE AMINOTRANSFERASE 15 U/L (12-78); ALBUMIN 3.8 G/DL (3.4-5.0); ALKALINE PHOSPHATASE 88 U/L (46-116); ANION GAP 13 mmol/L (5-15); ASPARTATE AMINO TRANSFERASE 17 U/L (15-37); BILIRUBIN,TOTAL 0.2 MG/DL (0.2-1.0); CALCIUM 8.3 MG/DL (8.5-10.1); CARBON DIOXIDE 22 MMOL/L (21-32)
[2017-12-10 04:39] VITALS: BP 130/86
--- NOTE | 2017-12-10 05:15 | Emergency Room Report ---
History of Present Illness General Chief Complaint: Behavioral Complaint Source: Patient Present Illness HPI 22-year-old female presents ED for psychiatric evaluation. Patient brought in by [employer]. Patient has self-inflicted wounds to her left wrist and left thigh. Patient states she cut herself using razor blade tonight. States she was frustrated with herself. Denies suicidal or homicidal ideation. Denies hearing voices. Patient does admit to psychiatric history and states she has a psychiatrist and therapist. Denies drug use. Patient placed on 5150 hold. No other aggravating relieving factors. Denies any other associated symptoms Allergies: Coded Allergies: No Known Allergies (Unverified , 12/10/17) Patient History Past Medical History: psych hx Past Surgical History: none Pertinent Family History: none Social History: Denies: smoking, alcohol use, drug use Last Menstrual Period: unknown Now: No Immunizations: UTD Reviewed Nursing Documentation: PMH: Agreed; PSxH: Agreed Nursing Documentation-PMH History Of Psychiatric Problem: Yes Review of Systems All Other Systems: negative except mentioned in HPI Physical Exam Vital Signs Date Time Temp Pulse Resp B/P (MAP) Pulse Ox O2 Delivery O2 Flow Rate FiO2 12/10/17 01:14 98.0 100 22 168/110 98 Room Air 98.1 Sp02 EP Interpretation: reviewed, normal General Appearance: no apparent distress, alert, GCS 15, non-toxic Head: normocephalic, atraumatic Eyes: bilateral eye normal inspection, bilateral eye PERRL ENT: hearing grossly normal, normal pharynx, no angioedema, normal voice Neck: full range of motion, supple/symm/no masses Respiratory: chest non-tender, lungs clear, normal breath sounds, speaking full sentences Cardiovascular #1: regular rate, rhythm, no edema Cardiovascular #2: 2+ carotid (R), 2+ carotid (L), 2+ radial (R), 2+ radial (L) , 2+ dorsalis pedis (R), 2+ dorsalis pedis (L) Gastrointestinal: normal bowel sounds, non tender, soft, non-distended, no guarding, no rebound Rectal: deferred Genitourinary: normal inspection, no CVA tenderness Musculoskeletal: back normal, gait/station normal, normal range of motion, non- tender Neurologic: alert, oriented x3, responsive, motor strength/tone normal, sensory intact, speech normal Psychiatric: memory normal, depressed affect, anxious Reflexes: 3+ bicep (R), 3+ bicep (L), 3+ tricep (R), 3+ tricep (L), 3+ knee (R) , 3+ knee (L) Skin: normal color, no rash, warm/dry, well hydrated, abrasions - superficial abrasions to L wrist, L thigh Lymphatic: no adenopathy Medical Decision Making Diagnostic Impression: Primary Impression: Behavioral disorder Additional Impressions: Suicide and self-inflicted injury by cutting and piercing instrument Qualified Codes: X78.9XXA - Intentional self-harm by unspecified sharp object , initial encounter Alcohol intoxication Qualified Codes: F10.929 - Alcohol use, unspecified with intoxication, unspecified ER Course Hospital Course 22-year-old female presents ED with self-inflicted wounds to her left wrist and thigh. Differential diagnoses include: Major depressive disorder, unspecified psychosis , EtOH abuse, drug abuse Clinical course Patient placed on stretcher. On one to one observation. After initial history and physical I ordered labs, U. tox Wounds appear superficial. Tetanus is up-to-date. Labs-electrolytes normal, aspirin/Tylenol levels normal, EtOH level 186 Patient on 5150 hold Patient is medically cleared. Patient accepted for transfer to [facility]. I feel this is a highly complex case requiring extensive working including EKG/Rhythm strip, Xray/CT/US, Blood/urine lab work, repeat exams while in ED, and administration of strong opiates/narcotics for pain control, admission to hospital or close patient follow up. Labs Test 12/10/17 01:38 12/10/17 02:15 Urine Color Yellow Urine Appearance Slightly cloudy Urine pH 5 (4.5-8.0) Urine Specific [place] 1.025 (1.005-1.035) Urine Protein 3+ (NEGATIVE) Urine Glucose (UA) Negative (NEGATIVE) Urine Ketones Negative (NEGATIVE) Urine Occult Blood 4+ (NEGATIVE) Urine Nitrite Negative (NEGATIVE) Urine Bilirubin Negative (NEGATIVE) Urine Urobilinogen 1 MG/DL (0.0-1.0) Urine Leukocyte Esterase 1+ (NEGATIVE) Urine RBC 5-10 /HPF (0 - 2) Urine WBC 0-2 /HPF (0 - 2) Urine Squamous Epithelial Cells Many /LPF (NONE/OCC) Urine Bacteria Few /HPF (NONE) Urine HCG, Qualitative Negative (NEGATIVE) Urine Opiates Screen Negative (NEGATIVE) Urine Barbiturates Screen Negative (NEGATIVE) Phencyclidine (PCP) Screen Negative (NEGATIVE) Urine Amphetamines Screen Negative (NEGATIVE) Urine Benzodiazepines Screen Negative (NEGATIVE) Urine Cocaine Screen Negative (NEGATIVE) Urine Marijuana (THC) Screen Negative (NEGATIVE) White Blood Count 7.9 K/UL (4.8-10.8) Red Blood Count 4.08 M/UL (4.20-5.40) Hemoglobin 12.8 G/DL (12.0-16.0) Hematocrit 37.4 % (37.0-47.0) Mean Corpuscular Volume 92 FL (80-99) Mean Corpuscular Hemoglobin 31.3 PG (27.0-31.0) Mean Corpuscular Hemoglobin Concent 34.2 G/DL (32.0-36.0) Red Cell Distribution Width 13.5 % (11.6-14.8) Platelet Count 248 K/UL (150-450) Mean Platelet Volume 8.9 FL (6.5-10.1) Neutrophils (%) (Auto) 83.3 % (45.0-75.0) Lymphocytes (%) (Auto) 11.6 % (20.0-45.0) Monocytes (%) (Auto) 4.7 % (1.0-10.0) Eosinophils (%) (Auto) 0.1 % (0.0-3.0) Basophils (%) (Auto) 0.4 % (0.0-2.0) Sodium Level 142 MMOL/L (136-145) Potassium Level 3.6 MMOL/L (3.5-5.1) Chloride Level 107 MMOL/L (98-107) Carbon Dioxide Level 22 MMOL/L (21-32) Anion Gap 13 mmol/L (5-15) Blood Urea Nitrogen 7 mg/dL (7-18) Creatinine 0.7 MG/DL (0.55-1.30) Estimat Glomerular Filtration Rate > 60 mL/min (>60) Glucose Level 150 MG/DL (74-106) Calcium Level 8.3 MG/DL (8.5-10.1) Total Bilirubin 0.2 MG/DL (0.2-1.0) Aspartate Amino Transf (AST/SGOT) 17 U/L (15-37) Alanine Aminotransferase (ALT/SGPT) 15 U/L (12-78) Alkaline Phosphatase 88 U/L (46-116) Total Protein 7.5 G/DL (6.4-8.2) Albumin 3.8 G/DL (3.4-5.0) Globulin 3.7 g/dL Albumin/Globulin Ratio 1.0 (1.0-2.7) Salicylates Level 1.6 ug/mL (2.8-20) Acetaminophen Level < 2 MCG/ML (10-30) Serum Alcohol 186 mg/dL Last Vital Signs Date Time Temp Pulse Resp B/P (MAP) Pulse Ox O2 Delivery O2 Flow Rate FiO2 12/10/17 04:39 98.3 105 18 130/86 98 Room Air 98.3 Status: improved Disposition: XFER TO PSYCH HOSP/UNIT Condition: Serious Referrals: [facility]REFERR[facility] (PCP) Kenney Cortez MD Dec 10, 2017 05:15
[2017-12-10 07:39] VITALS: BP 130/86
== END 2017-12-10 07:47 ==
LOC: EDBD 01:11 → MERGE 02:00 → EMR 02:00
DX: F91.9 Conduct disorder, unspecified (principal); S60.812A Abrasion of left wrist, initial encounter; S70.312A Abrasion, left thigh, initial encounter; X78.8XXA Intentional self-harm by other sharp object, initial encounter; Y92.009 Unspecified place in unspecified non-institutional (private) residence as the place of occurrence of the external cause; F10.129 Alcohol abuse with intoxication, unspecified
CPT/HCPCS: 36415; 80053; 80307; 80329; 81003; 81025; 85025; 96360; 96374; 99284

== ENCOUNTER 2018-08-24 17:13 | Emergency (ER) | payer OTHER ==
[~2018-08-24] VITALS: Ht 157.5 cm; Wt 69.4 kg
--- NOTE | 2018-08-24 17:40 | NUR ---
ED Nurse Note: Patient walked into Ed c/o of lower abdominal pain for 1 week now that she rates an 8/10 pain. patient is alert and oriented x4, ambulatory with a steady gait, VSS
[2018-08-24 17:42] VITALS: BP 116/77
--- NOTE | 2018-08-24 17:56 | Emergency Room Report ---
History of Present Illness General Chief Complaint: Abdominal Pain Source: Patient Present Illness HPI Patient presents with 3 days of worsened epigastric pain and vomiting clear material. She denies vomiting blood. She doesn't check her bowel movements but hasn't had smelly or tarry stool. It's been normal. The patient has a two-year history of epigastric pain just like this. She was evaluated [facility]. She's never had endoscopy done. She's had multiple medicines in the past. She says that they haven't helped and usually make the pain worse. These include omeprazole and Pepcid. Usually she gets better with taking GI cocktail going to the hospital. The patient is late for her period but she says her menstruation is irregular. The patient does drink alcohol but hasn't for many days. She denies taking a nonsteroidal anti-inflammatories. 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 Reviewed Nursing Documentation: PMH: Agreed; PSxH: Agreed Nursing Documentation-PMH Hx Cardiac Problems: Yes Hx Asthma: Yes Review of Systems All Other Systems: negative except mentioned in HPI Physical Exam Vital Signs Date Time Temp Pulse Resp B/P (MAP) Pulse Ox O2 Delivery O2 Flow Rate FiO2 08/24/18 17:34 98.4 79 19 116/77 98 Room Air Sp02 EP Interpretation: reviewed, normal General Appearance: well appearing, no apparent distress, GCS 15 Head: normocephalic Eyes: bilateral eye normal inspection, bilateral eye PERRL, bilateral eye EOMI ENT: moist mucus membranes Neck: supple Respiratory: lungs clear, normal breath sounds Cardiovascular #1: regular rate, rhythm Cardiovascular #2: 2+ radial (R) Gastrointestinal: normal inspection, normal bowel sounds, no mass, non- distended, no guarding, no rebound, tenderness Genitourinary: no CVA tenderness Musculoskeletal: back normal, gait/station normal, normal range of motion Neurologic: alert, oriented x3, grossly normal Psychiatric: mood/affect normal, anxious Skin: normal inspection, warm/dry Medical Decision Making Diagnostic Impression: Primary Impression: Gastritis Qualified Codes: K29.00 - Acute gastritis without bleeding ER Course Patient presents with epigastric pain and vomiting for 3 days. Differential includes gastritis, pancreatitis, GERD, gastroenteritis, pancreatitis amongst others. The patient will be evaluated with labs. The patient will receive IV hydration, GI cocktail, Pepcid, and Zofran. Patient is also late for her period and we need to exclude . In the past she's been seen for alcohol abuse. Labs unremarkable. Patient improved with treatment. Discussed treatment plan with patient. Patient stable for outpatient observation and treatment. Laboratory Tests Test 08/24/18 17:55 White Blood Count 6.6 K/UL (4.8-10.8) Red Blood Count 4.24 M/UL (4.20-5.40) Hemoglobin 13.0 G/DL (12.0-16.0) Hematocrit 39.7 % (37.0-47.0) Mean Corpuscular Volume 94 FL (80-99) Mean Corpuscular Hemoglobin 30.6 PG (27.0-31.0) Mean Corpuscular Hemoglobin Concent 32.7 G/DL (32.0-36.0) Red Cell Distribution Width 12.2 % (11.6-14.8) Platelet Count 189 K/UL (150-450) Mean Platelet Volume 8.3 FL (6.5-10.1) Neutrophils (%) (Auto) 69.0 % (45.0-75.0) Lymphocytes (%) (Auto) 22.3 % (20.0-45.0) Monocytes (%) (Auto) 7.7 % (1.0-10.0) Eosinophils (%) (Auto) 0.3 % (0.0-3.0) Basophils (%) (Auto) 0.7 % (0.0-2.0) Prothrombin Time 11.4 SEC (9.30-11.50) Prothrombin Time INR 1.1 (0.9-1.1) PTT 27 SEC (23-33) Urine Color Pale yellow Urine Appearance Clear Urine pH 6 (4.5-8.0) Urine Specific [place] 1.020 (1.005-1.035) Urine Protein Negative (NEGATIVE) Urine Glucose (UA) Negative (NEGATIVE) Urine Ketones Negative (NEGATIVE) Urine Blood Negative (NEGATIVE) Urine Nitrite Negative (NEGATIVE) Urine Bilirubin Negative (NEGATIVE) Urine Urobilinogen Normal MG/DL (0.0-1.0) Urine Leukocyte Esterase 2+ (NEGATIVE) H Urine RBC 0-2 /HPF (0 - 2) Urine WBC 2-4 /HPF (0 - 2) Urine Squamous Epithelial Cells Moderate /LPF (NONE/OCC) H Urine Bacteria Few /HPF (NONE) Urine Mucus Moderate /LPF (NONE/OCC) H Urine HCG, Qualitative Negative (NEGATIVE) Sodium Level 141 MMOL/L (136-145) Potassium Level 4.0 MMOL/L (3.5-5.1) Chloride Level 103 MMOL/L (98-107) Carbon Dioxide Level 27 MMOL/L (21-32) Anion Gap 11 mmol/L (5-15) Blood Urea Nitrogen 13 mg/dL (7-18) Creatinine 0.7 MG/DL (0.55-1.30) Estimate Glomerular Filtration Rate > 60 mL/min (>60) Glucose Level 95 MG/DL (74-106) Calcium Level 9.4 MG/DL (8.5-10.1) Total Bilirubin 0.2 MG/DL (0.2-1.0) Aspartate Amino Transferase (AST) 14 U/L (15-37) L Alanine Aminotransferase (ALT) 13 U/L (12-78) Alkaline Phosphatase 87 U/L (46-116) Total Protein 7.9 G/DL (6.4-8.2) Albumin 4.2 G/DL (3.4-5.0) Globulin 3.7 g/dL Albumin/Globulin Ratio 1.1 (1.0-2.7) Lipase 112 U/L (73-393) Last Vital Signs Date Time Temp Pulse Resp B/P (MAP) Pulse Ox O2 Delivery O2 Flow Rate FiO2 08/24/18 19:57 98.4 79 19 120/82 98 Room Air Status: improved Disposition: HOME, SELF-CARE Condition: Improved Scripts Acetaminophen (Tylenol) 325 Mg Tablet 650 MG ORAL Q6H PRN for Prn Pain/Headache/Temp > 101, #20 TAB 0 Refills Prov: Jordy Cox MD 08/24/18 Famotidine (PEPCID AC) 20 Mg Tablet 20 MG PO DAILY, #20 TAB Prov: Jordy Cox MD 08/24/18 Mag Hydrox/Al Hydrox/Simeth (MAALOX MAXIMUM STRENGTH SUSP) 355 Ml Oral.susp 30 ML PO Q6HR, #240 ML Prov: Jordy Cox MD 08/24/18 Jordy Cox MD Aug 24, 2018 17:56
[2018-08-24] MEDS ORDERED: Mylanta II UD 30ml ORAL ONE (18:00)
[2018-08-24] MEDS ORDERED: Lidocaine 2% Visc 15ml soln ORAL ONE (18:00)
[2018-08-24 18:22] LABS: APPEARANCE,URINE CLEAR; BASOPHILS % (AUTO) 0.7 % (0.0-2.0); BILIRUBIN, URINE NEGATIVE (NEGATIVE); COLOR,URINE PALE YELLOW; EOSINOPHILS % (AUTO) 0.3 % (0.0-3.0); GLUCOSE, URINE (UA) NEGATIVE (NEGATIVE); HEMATOCRIT 39.7 % (37.0-47.0); KETONES,URINE NEGATIVE (NEGATIVE); LEUKOCYTE ESTERASE ,URINE 2+ (NEGATIVE); LYMPHOCYTES % (AUTO) 22.3 % (20.0-45.0); MEAN CORPUSCULAR VOLUME 94 FL (80-99); MONOCYTES % (AUTO) 7.7 % (1.0-10.0); NITRITE,URINE NEGATIVE (NEGATIVE); PH,URINE 6 (4.5-8.0); PLATELET COUNT 189 K/UL (150-450); PROTEIN,URINE NEGATIVE (NEGATIVE); RED BLOOD COUNT 4.24 M/UL (4.20-5.40); RED CELL DISTRIBUTION WIDTH 12.2 % (11.6-14.8); UROBILINOGEN,URINE NORMAL MG/DL (0.0-1.0); WHITE BLOOD COUNT 6.6 K/UL (4.8-10.8)
[2018-08-24 18:28] LABS: ANION GAP 11 mmol/L (5-15); BLOOD UREA NITROGEN 13 mg/dL (7-18); CALCIUM 9.4 MG/DL (8.5-10.1); CARBON DIOXIDE 27 MMOL/L (21-32); CHLORIDE 103 MMOL/L (98-107); CREATININE 0.7 MG/DL (0.55-1.30); SODIUM 141 MMOL/L (136-145)
[2018-08-24 18:33] LABS: ALANINE AMINOTRANSFERASE 13 U/L (12-78); ALBUMIN 4.2 G/DL (3.4-5.0); ALBUMIN/GLOBULIN RATIO 1.1 (1.0-2.7); ALKALINE PHOSPHATASE 87 U/L (46-116); ASPARTATE AMINO TRANSFERASE 14 U/L (15-37); BILIRUBIN,TOTAL 0.2 MG/DL (0.2-1.0)
[2018-08-24 18:38] LABS: INR 1.1 (0.9-1.1)
[2018-08-24] MEDS ORDERED: TYLENOL325 MG ORAL (19:46)
[2018-08-24] MEDS ORDERED: MAALOX MAXIMUM355 M1 PO (19:46)
[2018-08-24] MEDS ORDERED: PEPCID AC20 M2 PO (19:46)
[2018-08-24 19:57] VITALS: BP 120/82
--- NOTE | 2018-08-24 19:57 | NUR ---
ER DISCHARGE NOTE: Patient is cleared to be discharged per ERMD, pt is aox4, on room air, with stable vital signs. pt was given dc and prescription instructions, pt was able to verbalize understanding, pt id band and iv site removed without complications. pt is able to ambulate with steady gait. pt took all belongings.
== END 2018-08-24 19:57 | disposition home or self-care (01) ==
LOC: EMR 18:05
DX: K29.70 Gastritis, unspecified, without bleeding (principal); J45.909 Unspecified asthma, uncomplicated
CPT/HCPCS: 36415; 80053; 81003; 81025; 83690; 85025; 85610; 85730; 96361; 96374; 96375; 99284; J2405; S0028

== ENCOUNTER 2018-09-16 22:50 | Emergency (ER) | payer OTHER ==
[~2018-09-16] VITALS: Ht 154.9 cm; Wt 68.0 kg
[~2018-09-16 22:50] MED LIST changes: +MAALOX MAXIMUM355 M1 PO; +PEPCID AC20 M2 PO; +TYLENOL325 MG ORAL
--- NOTE | 2018-09-16 23:25 | NUR ---
ED Nurse Note: Pt c/o stomach acid reflex and was here for the same 2 weeks ago. pt states that she may have symptoms of GERD. pt bowl sounds are normal active. pt states that at times when she eats, her contents go back up . pt states she has normal Bowl movements. pt cardiac assessment is within normal limites with S1 and S2 noted upon ascultation.
[2018-09-16 23:27] VITALS: BP 126/80
[2018-09-16] MEDS ORDERED: Sucralfate 1gm tab ORAL ONE (23:45)
[2018-09-16] MEDS ORDERED: PRILOSEC OTC20 MG ORAL (23:48)
--- NOTE | 2018-09-16 23:58 | Emergency Room Report ---
History of Present Illness General Chief Complaint: General Complaint Source: Patient Present Illness HPI Patient is a 23-year-old female who presented after increased burning sensation to her chest. Patient a prior history of chronic heartburn. Patient had multiple previous visits for similar symptoms as well as alcohol intoxication. Patient denies any bleeding or vomiting. She denies any abdominal pain.Patient denies any recent bleeding. She denies being . Allergies: Coded Allergies: No Known Allergies (Unverified , 05/15/13) Patient History Past Medical History: see triage record Last Menstrual Period: Aug 25 2018 Now: No Reviewed Nursing Documentation: PMH: Agreed; PSxH: Agreed Nursing Documentation-PMH Hx Cardiac Problems: Yes Hx Asthma: Yes Review of Systems All Other Systems: negative except mentioned in HPI Physical Exam Vital Signs Date Time Temp Pulse Resp B/P (MAP) Pulse Ox O2 Delivery O2 Flow Rate FiO2 09/16/18 23:17 98.4 80 18 126/80 97 Room Air 09/16/18 23:27 99 Sp02 EP Interpretation: reviewed, normal General Appearance: normal inspection, well appearing, no apparent distress, alert, GCS 15, non-toxic Head: atraumatic ENT: normal ENT inspection, hearing grossly normal, normal voice Neck: normal inspection, full range of motion, supple, no bony tend Respiratory: normal inspection, lungs clear, normal breath sounds, no respiratory distress, no retraction, no wheezing Cardiovascular #1: regular rate, rhythm, no edema Gastrointestinal: normal inspection, normal bowel sounds, non tender, soft, no guarding, no hernia Genitourinary: no CVA tenderness Musculoskeletal: normal inspection, back normal, normal range of motion Neurologic: normal inspection, alert, responsive, speech normal Psychiatric: normal inspection, judgement/insight normal, mood/affect normal Skin: normal inspection, normal color, no rash Medical Decision Making Diagnostic Impression: Primary Impression: Chronic GERD ER Course Patient presented for burning sensation to her chest. Differential diagnosis include was not limited to gastritis, reflux, bronchitis among others. Patient has a benign exam and does not appear to require any further imaging or laboratory testing at this time. Patient has had multiple prior visits for GERD. Patient was noted to have prior history of alcohol abuse and has had multiple previous visits which she was intoxicated. Patient denies any recent alcohol abuse. Patient was given oral antacids for symptomatic treatment. She was given prescription for acid blockers. She is advised to follow-up with GI for endoscopy Last Vital Signs Date Time Temp Pulse Resp B/P (MAP) Pulse Ox O2 Delivery O2 Flow Rate FiO2 09/16/18 23:27 98.4 67 18 126/80 97 Room Air 09/16/18 23:27 99 Status: improved Disposition: HOME, SELF-CARE Condition: Stable Scripts Omeprazole Magnesium (PRILOSEC OTC) 20 Mg Tablet. 20 MG ORAL DAILY, #30 TAB Prov: Richardson Carrion MD 09/16/18 Patient Instructions: Gastroesophageal Reflux Disease, Adult Richardson Carrion MD Sep 16, 2018 23:58
[2018-09-17 00:39] VITALS: BP 130/81
--- NOTE | 2018-09-17 00:39 | NUR ---
ER DISCHARGE NOTE: Patient is cleared to be discharged per ERMD, pt is aox4, on room air, with stable vital signs. pt was given dc and prescription instructions, pt was able to verbalize understanding, pt id band removed without complications. pt is able to ambulate with steady gait. pt took all belongings.
== END 2018-09-17 00:39 | disposition home or self-care (01) ==
LOC: EMR 23:40
DX: K21.9 Gastro-esophageal reflux disease without esophagitis (principal); J45.909 Unspecified asthma, uncomplicated
CPT/HCPCS: 99282

== ENCOUNTER 2018-10-10 20:57 | Emergency (ER) | payer OTHER ==
[~2018-10-10] VITALS: Ht 154.9 cm; Wt 68.0 kg
[~2018-10-10 20:57] MED LIST changes: +PRILOSEC OTC20 MG ORAL
--- NOTE | 2018-10-10 21:08 | NUR ---
ED Nurse Note: PT CAME TO ED C/O OF FLU LIKE SYMPTOMS. PT STATES, SHE HAS CHILLS AND FEVER. HASNT BEEN ABLE TO ATE, DENIES NAUSEA, VOMTING, DIARRHEA.
[2018-10-10 21:09] VITALS: BP 134/80
[2018-10-10] MEDS ORDERED: Dexamethasone 4mg/ml vial IM ONE (21:30)
[2018-10-10] MEDS ORDERED: RANITIDINE HCL150 MG ORAL (21:40)
[2018-10-10] MEDS ORDERED: TYLENOL EXTRA500 MG ORAL (21:40)
[2018-10-10] MEDS ORDERED: AMOXICILLIN500 MG ORAL (21:40)
--- NOTE | 2018-10-10 21:48 | NUR ---
ER DISCHARGE NOTE: Patient is cleared to be discharged per ERMD, pt is aox4, on room air, with stable vital signs. pt was given dc and prescription instructions, pt was able to verbalize understanding, pt id band removed. pt is able to ambulate with steady gait. pt took all belongings.ED Nurse Note:
[2018-10-10 21:51] VITALS: BP 134/80
--- NOTE | 2018-10-11 00:21 | Emergency Room Report ---
History of Present Illness General Chief Complaint: Flu Like Symptoms Source: Patient Present Illness HPI 23 yo F presents to ED c/o sore throat. started 2 days ago. pain is throbbing , 10/10 nonradiating. notes chills, afebrile in triage. pain with swallowing. denies sick contacts or recent travels. tachycardia in triage. patient states she is nervous - has h/o anxiety. no other aggravating or relieving factors. denies any other associated symptoms Allergies: Coded Allergies: No Known Allergies (Unverified , 05/15/13) Patient History Past Medical History: asthma Pertinent Family History: none Social History: Denies: smoking, alcohol use, drug use Last Menstrual Period: 09/22/2018 Now: No Immunizations: UTD Reviewed Nursing Documentation: PMH: Agreed; PSxH: Agreed Nursing Documentation-PMH Past Medical History: No History, Except For Hx Cardiac Problems: Yes Hx Asthma: Yes Review of Systems All Other Systems: negative except mentioned in HPI Physical Exam Vital Signs Date Time Temp Pulse Resp B/P (MAP) Pulse Ox O2 Delivery O2 Flow Rate FiO2 10/10/18 21:00 98.8 131 16 134/80 98 Room Air Sp02 EP Interpretation: reviewed, normal General Appearance: no apparent distress, alert, GCS 15, non-toxic Head: normocephalic, atraumatic Eyes: bilateral eye normal inspection, bilateral eye PERRL ENT: hearing grossly normal, no angioedema, normal voice, pharyngeal erythema Neck: full range of motion, supple/symm/no masses Respiratory: chest non-tender, lungs clear, normal breath sounds, speaking full sentences Cardiovascular #1: regular rate, rhythm, no edema Cardiovascular #2: 2+ carotid (R), 2+ carotid (L), 2+ radial (R), 2+ radial (L) , 2+ dorsalis pedis (R), 2+ dorsalis pedis (L) Gastrointestinal: normal bowel sounds, non tender, soft, non-distended, no guarding, no rebound Rectal: deferred Genitourinary: normal inspection, no CVA tenderness Musculoskeletal: back normal, gait/station normal, normal range of motion, non- tender Neurologic: alert, oriented x3, responsive, motor strength/tone normal, sensory intact, speech normal Psychiatric: judgement/insight normal, memory normal, mood/affect normal, no suicidal/homicidal ideation Reflexes: 3+ bicep (R), 3+ bicep (L), 3+ tricep (R), 3+ tricep (L), 3+ knee (R) , 3+ knee (L) Skin: normal color, no rash, warm/dry, well hydrated Lymphatic: adenopathy Medical Decision Making Diagnostic Impression: Primary Impression: Pharyngitis Qualified Codes: J02.9 - Acute pharyngitis, unspecified ER Course Hospital Course 23 -year-old female presents to ED complaining of sore throat + chills Differential diagnoses include: URI, pharyngitis, otitis media Clinical course Patient placed on stretcher. After initial history, physical exam reveals a female in no acute distress. Bilateral TM unremarkable. There is pharyngeal erythema w/o tonsillar exudates. Noted lymphadenopathy. Clinical findings consistent with pharyngitis. Reassurance given to parents given decadron, tylenol, amoxicillin in ED. patient non-toxic, afebrile. safe for discharge with close outpatient followup. patient states she has a PMD Diagnosis - pharyngitis Stable and discharged home with prescriptions for tylenol, zantac, amoxicillin. Instructed to followup with PMD. return to ED if symptoms recur or worsen Last Vital Signs Date Time Temp Pulse Resp B/P (MAP) Pulse Ox O2 Delivery O2 Flow Rate FiO2 10/10/18 21:51 98.8 131 16 134/80 98 Room Air Status: improved Disposition: HOME, SELF-CARE Condition: Stable Scripts Ranitidine Hcl* (ZANTAC*) 150 Mg Tablet 150 MG ORAL TWICE A DAY, #30 TAB Prov: Kenney Cortez MD 10/10/18 Amoxicillin* (AMOXIL*) 500 Mg Capsule 500 MG ORAL THREE TIMES A DAY, #21 CAP Prov: Kenney Cortez MD 10/10/18 Acetaminophen* (TYLENOL EXTRA STRENGTH*) 500 Mg Tablet 500 MG ORAL Q6H PRN for Mild Pain/Temp > 100.5, #30 TAB 0 Refills Prov: Kenney Cortez MD 10/10/18 Referrals: [facility],REFERRING (PCP) Patient Instructions: Pharyngitis, [id number] Kenney Cortez MD Oct 11, 2018 00:21
== END 2018-10-10 21:48 | disposition home or self-care (01) ==
LOC: EMR 21:33
DX: J02.9 Acute pharyngitis, unspecified (principal); J45.909 Unspecified asthma, uncomplicated
CPT/HCPCS: 96372; 99283; J1100

== ENCOUNTER 2019-09-15 20:21 | Emergency (ER) | payer OTHER ==
[~2019-09-15] VITALS: Ht 157.5 cm; Wt 68.0 kg
[~2019-09-15 20:21] MED LIST changes: +AMOXICILLIN500 MG ORAL; +RANITIDINE HCL150 MG ORAL
[2019-09-15 20:35] VITALS: BP 132/85
--- NOTE | 2019-09-15 20:35 | NUR ---
ED Nurse Note: Patient walked in from home d/t feeling a panic attack since this morning, pt aao x 4 and ambulatory with steady gait. Patient states feeling feverish and SOB, no other respiratory symptoms. Patient stable upon assessment.
--- NOTE | 2019-09-15 20:45 | NUR ---
ED Nurse Note: ER MD at bedside.
--- NOTE | 2019-09-15 20:57 | Emergency Room Report ---
History of Present Illness General Chief Complaint: General Complaint Source: Patient Present Illness HPI Patient had episode tonight of dyspnea epigastric acid-like feeling and anxiety. Somewhat better at this time. She thought that she might of had a fever this morning but did not document. She has had episodes like this before. She was evaluated at [place] with EKG and blood work. She also had a CT scan done. She reports that all these tests were negative. She is under stress at this time. She denies suicidal or homicidal ideation. There is no nausea or vomiting. She felt some tingling in her hands and also on her left leg during the episode but this is resolved at this time. She denies headache. No control, smoking or immobilization. No edema or calf pain. No chills, sore throat, chest pain, palpitations, diarrhea, dysuria, abdominal pain, joint pain, rashes, visual changes, dizziness. COVID-19 risk:Travel to [facility]: No Has patient experienced reynolds: No Allergies: Coded Allergies: No Known Allergies (Unverified , 05/15/13) Patient History Past Medical History: see triage record Social History: Denies: smoking, alcohol use - Prior, drug use Social History Narrative Student Last Menstrual Period: currently Now: No Reviewed Nursing Documentation: PMH: Agreed; PSxH: Agreed Nursing Documentation-PMH Past Medical History: No History, Except For Hx Cardiac Problems: Yes Hx Asthma: Yes History Of Psychiatric Problem: Yes - anxiety, depression Review of Systems All Other Systems: negative except mentioned in HPI Physical Exam Vital Signs Date Time Temp Pulse Resp B/P (MAP) Pulse Ox O2 Delivery O2 Flow Rate FiO2 09/15/19 20:26 98.1 111 22 133/83 (100) 94 Room Air Sp02 EP Interpretation: reviewed, normal General Appearance: well appearing, no apparent distress, GCS 15 Head: normocephalic Eyes: bilateral eye normal inspection, bilateral eye PERRL ENT: moist mucus membranes Cardiovascular #1: regular rate, rhythm Gastrointestinal: normal inspection, normal bowel sounds, non tender, soft Musculoskeletal: gait/station normal, no calf tenderness Neurologic: alert, grossly normal Psychiatric: anxious Skin: normal color, no rash Medical Decision Making Diagnostic Impression: Primary Impression: Anxiety Additional Impression: GERD (gastroesophageal reflux disease) Qualified Codes: K21.9 - Gastro-esophageal reflux disease without esophagitis ER Course Patient presents with epigastric discomfort and anxiety symptoms. Differential includes anxiety, gastroesophageal reflux, viral syndrome amongst others. History and exam are against pulmonary embolus or major cardiac problem. The fact that she had EKG labs and CT done at [place] recently is reassuring particular with normal vital signs. Offered the patient medicine for anxiety which she declined. She agrees to take Mylanta here. Patient improved with observation and treatment. Discussed the need for outpatient follow-up. Patient stable for outpatient observation and treatment. Rhythm Strip Diag. Results EP Interpretation: yes Rhythm: NSR, no PVC's, no ectopy Last Vital Signs Date Time Temp Pulse Resp B/P (MAP) Pulse Ox O2 Delivery O2 Flow Rate FiO2 09/15/19 21:10 98.0 101 18 130/86 96 Room Air Status: improved Disposition: HOME, SELF-CARE Condition: Improved Scripts Mag Hydrox/Aluminum Hyd/Simeth (Mylanta Maximum Strength Liq) 355 Ml Oral.susp 30 ML PO Q6HR PRN for GERD, #240 ML Prov: Jordy Cox MD 09/15/19 Famotidine* (Pepcid 20mg tablet*) 20 Mg Tablet 20 MG ORAL DAILY, #20 TAB 0 Refills Prov: Jordy Cox MD 09/15/19 Hydroxyzine Pamoate (VISTARIL) 25 Mg Capsule 25 MG PO Q8HR PRN for anxiety, #10 CAP Prov: Jordy Cox MD 09/15/19 Jordy Cox MD Sep 15, 2019 20:57
[2019-09-15] MEDS ORDERED: VISTARIL25 M1 PO (21:00)
[2019-09-15] MEDS ORDERED: MYLANTA MAXIMU355 ML PO (21:00)
[2019-09-15] MEDS ORDERED: Mylanta II UD 30ml ORAL ONE (21:00)
[2019-09-15] MEDS ORDERED: FAMOTIDINE20 MG ORAL (21:00)
[2019-09-15 21:10] VITALS: BP 130/86
--- NOTE | 2019-09-15 21:10 | NUR ---
ER DISCHARGE NOTE: Patient is cleared to be discharged per ERMD, pt is aox4, on room air, with stable vital signs. pt was given dc and prescription instructions, pt was able to verbalize understanding, pt id band removed. pt is able to ambulate with steady gait. pt took all belongings. pt stable upon discharge.
== END 2019-09-15 21:11 | disposition home or self-care (01) ==
LOC: EMR 21:11
DX: F41.9 Anxiety disorder, unspecified (principal); K21.9 Gastro-esophageal reflux disease without esophagitis; F32.9 Major depressive disorder, single episode, unspecified
CPT/HCPCS: 99282